=== PATIENT | male | born 1990 | race Caucasian/White ===

== ENCOUNTER 2019-09-12 19:59 | Observation (INO) | payer MEDICAID, OTHER ==
[2019-09-12] MEDS ORDERED: Codeine/guaiFENesin 100mg-10 MG/5 ML Syrup 10 ML Cup PO ONE (20:29)
[2019-09-12] MEDS ORDERED: Albuterol/Ipratropium 3.0-0.5 MG/3 ML Neb Soln NEB ONE (20:30)
[2019-09-12] MEDS ORDERED: Sodium Chloride 0.9% 1,000 ML IV SCH (20:30)
[2019-09-12] MEDS ORDERED: cefTRIAXone 2 GM in Sodium Chloride 0.9% 50 ML IV ONE (20:47)
--- NOTE | 2019-09-12 21:20 | CRLCR ---
INDICATION: Shortness of breath. FINDINGS: PA and lateral chest x-rays show a normal cardiac silhouette. The lungs show a faint left upper lobe airspace opacity. No other focal pulmonary opacities. Sharp pleural margins. No pneumothorax. IMPRESSION: Faint left upper lobe airspace opacity may represent a pneumonia. Dictated by Ja Silver MD @ 09/12/2019 9:18:44 PM Dictated by: Ja Silver MD @ 09/12/2019 21:18:49 (Electronically Signed)
[2019-09-12] MEDS ORDERED: Albuterol 0.083% 2.5 MG/3 ML Neb Soln NEB PRN (21:53)
--- NOTE | 2019-09-12 21:53 | PCM.HP.2 ---
H&P History of Present Illness - General Date of Service: 09/12/19 Admit Problem/Dx: Admission Diagnosis/Problem Admission Diagnosis/Problem Pneumonia Source of Information: Patient History Limitations: Reports: No Limitations - History of Present Illness Initial Comments - Free Text/Narative: Chief Complaint: shortness of breath This is a 28 year old male presents to the ER with concerns of shortness of breath. He reports about 5 days ago he just finished having the flu, then yesterday he just couldn't breath. Today his symptoms are worse. has not eaten any food since yesterday, worsen shortness of breath, left chest with severe pain with any movement. He reports he is generally healthy except for smoking 2 pack of cigarette per day. Has not smoked since yesterday due to shortness of breath. Symptom Onset Date: 09/11/19 Duration of Symptoms: Reports: Getting Worse Location: Reports: Chest (left chest pain with movement or breathing.), Generalized (not feeling well, shortness of breath.) Severity: Severe Improves with: Reports: None Worsens with: Reports: None Associated Symptoms: Reports: Cough, Fever/Chills, Loss of Appetite, Malaise - Related Data Allergies/Adverse Reactions: Allergies Allergy/AdvReac Type Severity Reaction Status Date / Time Penicillins Allergy Hives Verified 09/12/19 20:09 Home Medications: Home Meds NK [No Known Home Meds] 09/12/19 [History] Past Medical History - Past Surgical History HEENT Surgical History: Reports: Myringotomy w Tube(s) Social & Family History - Tobacco Use Smoking Status *Q: Current Every Day Smoker Years of Tobacco use: 13 Packs/Tins Daily: 2 - Living Situation & Occupation Living situation: Reports: Single, with Family (lives with his Mom-Argenis and Dad -Elias.) H&P Review of Systems - Review of Systems: Review Of Systems: See Below General: Reports: Fever, Chills, Malaise, Fatigue, Decreased Appetite HEENT: Reports: No Symptoms Pulmonary: Reports: Shortness of Breath, Wheezing, Pleuritic Chest Pain, Cough Cardiovascular: Reports: No Symptoms Gastrointestinal: Reports: No Symptoms Genitourinary: Reports: No Symptoms Musculoskeletal: Reports: Muscle Pain (left chest) Skin: Reports: No Symptoms Psychiatric: Reports: No Symptoms Neurological: Reports: No Symptoms Hematologic/Lymphatic: Reports: No Symptoms Exam - Exam Exam: See Below - Vital Signs Vital Signs: Last Vital Signs Temp 35.5 C L 09/12/19 20:14 Pulse 113 H 09/12/19 20:14 Resp 16 09/12/19 20:14 BP 126/74 09/12/19 20:14 Pulse Ox 91 L 09/12/19 20:14 Weight: 72.575 kg - Exam General: Alert, Oriented, Moderate Distress (appear pallor and ill. with shallow breathing. ), Other (vital signs TPR 35.5-113-16 B/P 126/74 O2 sat 91% on room air) HEENT: PERRLA, Conjunctiva Clear, EACs Clear, EOMI, Hearing Intact, Mucosa Moist & [place], Nares Patent Neck: Supple, Trachea Midline Lungs: Decreased Breath Sounds (shallow breathing noted.) Cardiovascular: Regular Rate, Regular Rhythm, Tachycardia GI/Abdominal Exam: Normal Bowel Sounds, Soft, Non-Tender (Male) Exam: Deferred Rectal (Males) Exam: Deferred Back Exam: Normal Inspection, Full Range of Motion Extremities: Normal Inspection, Normal Range of Motion, Non-Tender, No Pedal Edema, Normal Capillary Refill Peripheral Pulses: 2+: Radial (L), Radial (R) Skin: Dry, Intact, Cool Neurological: Cranial Nerves Intact, Reflexes Equal Bilateral, Strength Equal Bilateral Neuro Extensive - Mental Status: Alert, Oriented x3, Normal Mood/Affect, Normal Cognition Neuro Extensive - Motor, Sensory, Reflexes: Normal Gait, Normal Reflexes Psychiatric: Alert (pleasant, polite. ), Normal Affect, Normal Mood - Patient Data Lab Results Last 24 hrs: Laboratory Results - last 24 hr 09/12/19 09/12/19 09/12/19 Range/Units 20:41 20:41 20:55 WBC 28.3 H (4.5-11.0) K/uL RBC 5.42 (4.30-5.90) M/uL Hgb 14.9 (12.0-15.0) g/dL Hct 45.7 (40.0-54.0) % MCV 84 (80-98) fL MCH 28 (27-31) pg MCHC 33 (32-36) % Plt Count 374 (150-400) K/uL Add Manual Diff Yes Neutrophils % (Manual) 78 H (36-66) % Band Neutrophils % 3 L (5-11) % Lymphocytes % (Manual) 5 L (24-44) % Monocytes % (Manual) 13 H (2-6) % Eosinophils % (Manual) 1 L (2-4) % Polychromasia Sodium 138 L (140-148) mmol/L Potassium 3.6 (3.6-5.2) mmol/L Chloride 99 L (100-108) mmol/L Carbon Dioxide 25 (21-32) mmol/L Anion Gap 17.6 H (5.0-14.0) mmol/L BUN 8 (7-18) mg/dL Creatinine 1.1 (0.8-1.3) mg/dL Est Cr Clr Drug Dosing 86.19 mL/min Estimated GFR (MDRD) > 60 (>60) Glucose 138 H (74-106) mg/dL Lactic Acid 1.4 (0.4-2.0) mmol/L Calcium 8.9 (8.5-10.1) mg/dL Total Bilirubin 0.6 (0.2-1.0) mg/dL AST 10 L (15-37) U/L ALT 22 (12-78) U/L Alkaline Phosphatase 83 (46-116) U/L Total Protein 8.1 (6.4-8.2) g/dL Albumin 3.0 L (3.4-5.0) g/dL Globulin 5.1 H (2.3-3.5) g/dL Albumin/Globulin Ratio 0.6 L (1.2-2.2) Result Diagrams: 09/12/19 20:41 09/12/19 20:41 Wyatt Results Last 24 hrs: Microbiology 09/12/19 20:31 Influenza Type A Antigen Screen - Final Nasal, Unspecified NEGATIVE INFLUENZA A VIRUS AG REFERENCE RANGE: NEGATIVE Influenza Type B Antigen Screen - Final NEGATIVE INFLUENZA B VIRUS AG REFERENCE RANGE: NEGATIVE Sepsis Event Note - Evaluation Sepsis Screening Result: No Definite Risk Possible Source of Sepsis: Pulmonary - Focused Exam Vital Signs: Vital Signs Temp Pulse Resp BP Pulse Ox 09/12/19 20:14 35.5 C L 113 H 16 126/74 91 L Respiratory Effort Without Exertion: Shallow Date Exam was Performed: 09/12/19 Time Exam was Performed: 22:12 - Problem List (1) Pneumonia SNOMED Code(s): 042063932 ICD Code: J18.9 - PNEUMONIA, UNSPECIFIED ORGANISM Status: Acute Priority : High Current Visit: Yes Qualifiers: Pneumonia type: due to unspecified organism Laterality: left Lung location: upper lobe of lung Qualified Code(s): J18.9 - Pneumonia, unspecified organism (2) Tobacco use disorder, continuous SNOMED Code(s): 105262798 ICD Code: F17.209 - NICOTINE DEPENDENCE, UNSP, W UNSP NICOTINE-INDUCED DISORDERS Status: Acute Priority: High Current Visit: Yes Problem List Initiated/Reviewed/Updated: Yes Orders Last 24hrs: Active Orders 24 hr Category Date Time Status Patient Status Manage Transfer [TRANSFER] Routine ADT 09/12/19 21:33 Active RT Aerosol Therapy [RC] ASDIRECTED Care 09/12/19 20:31 Active CULTURE BLOOD [BC] Urgent Lab 09/12/19 20:50 Received CULTURE BLOOD [BC] Urgent Lab 09/12/19 20:55 Received Sodium Chloride 0.9% [Normal Saline] 1,000 ml Med 09/12/19 20:30 Active IV ASDIRECTED methylPREDNISolone Sod Succ [Solu-MEDROL] Med 09/12/19 21:45 Ordered 40 mg IVPUSH Q6H Blood Culture x2 Reflex Set [OM.PC] Urgent Oth 09/12/19 20:46 Ordered Resuscitation Status Routine Resus Stat 09/12/19 21:35 Ordered Medication Orders Sodium Chloride (Normal Saline) 1,000 mls @ 999 mls/hr IV ASDIRECTED [facility] Last Admin: 09/12/19 21:06 Dose: 999 mls/hr Methylprednisolone Sodium Succinate (Solu-Medrol) 40 mg IVPUSH Q6H COUNTS INCLUDE 234 BEDS AT THE [facility] Assessment/Plan Comment:: Pneumonia - left upper lobe. -Admit observation 2 [place] for further monitoring -IV Fluids for rehydration 1 liter given in ER, then Normal Saline at 125ml/hr -IV Antibiotic; Rocephin 1 gram IV every 24 hours -IV Zithromax 500mg every 24 hours -oxygen to keep sats greater than 95% -IV Solumedrol 40 mg every 6 hours -schedule Duo nebs every 6 hours, Albuterol nebs every 4 hours prn -Advise to notify nurses of any chest pain or other symptoms -blood cultures x2 pending -And a.m. labs: CBC, BMP Tobacco use, report smokes 2 packs per day, unable to smoke today due to shortness of breath and not feeling well. -Nicotine patch 21 mg apply today -encourage to quit smoking Maintenance issues -Orders home meds: no chronic medication -Nutrition: regular diet -Epps catheter -not indicated at this time -DVT: Lovenox 30 mg subcut daily -PPI; PO Protonix 40mg daily CODE STATUS: FULL Admission status: Admit to Observation -I expect this patient to stay less than 24 hours, not to exceed 96 hours for evaluation and management of this problem admission status: Admit to [address] [place] [address] Disposition: home with Family Primary care provider: No primary care provider Hospitalist: Dr. Good - Mortality Measure Prognosis:: Good
[2019-09-12] MEDS ORDERED: Pantoprazole 40 MG Vial IVPUSH SCH (22:00)
[2019-09-12] MEDS ORDERED: oxyCODONE 5 MG Tab PO PRN (22:04)
[2019-09-12] MEDS ORDERED: Morphine 2 MG/ML SYRINGE IVPUSH PRN (22:04)
[2019-09-12] MEDS ORDERED: Docusate Sodium 100 MG Cap PO PRN (22:04)
[2019-09-12] MEDS ORDERED: Melatonin 3 MG Tab PO PRN (22:04)
[2019-09-12] MEDS ORDERED: Ondansetron 4 MG Tab.DIS PO PRN (22:04)
[2019-09-12] MEDS ORDERED: Acetaminophen 325 MG Tab PO PRN (22:04)
[2019-09-12] MEDS ORDERED: LORazepam 2 MG/ML SDV IV PRN (22:04)
--- NOTE | 2019-09-12 22:16 | EDM.PDOC ---
ED HPI GENERAL MEDICAL PROBLEM - General Chief Complaint: Chest Pain Stated Complaint: L SIDE PAIN Time Seen by Provider: 09/12/19 20:00 Source of Information: Reports: Patient History Limitations: Reports: No Limitations - History of Present Illness INITIAL COMMENTS - FREE TEXT/NARRATIVE: Chief Complaint: shortness of breath This is a 28 year old male presents to the ER with concerns of shortness of breath. He reports about 5 days ago he just finished having the flu, then yesterday he just couldn't breath. Today his symptoms are worse. has not eaten any food since yesterday, worsen shortness of breath, left chest with severe pain with any movement. He reports he is generally healthy except for smoking 2 pack of cigarette per day. Has not smoked since yesterday due to shortness of breath. Symptom Onset Date: 09/11/19 Onset Date: 09/11/19 Duration: Getting Worse Location: Reports: Chest (left chest pain with movement or breathing.), Generalized (not feeling well, shortness of breath.) Severity: Severe Improves with: Reports: None Worsens with: Reports: None Associated Symptoms: Reports: Cough, Fever/Chills, Loss of Appetite, Malaise - Related Data Allergies Allergy/AdvReac Type Severity Reaction Status Date / Time Penicillins Allergy Hives Verified 09/12/19 20:09 Home Meds: Home Meds NK [No Known Home Meds] 09/12/19 [History] Past Medical History - Past Surgical History HEENT Surgical History: Reports: Myringotomy w Tube(s) Social & Family History - Tobacco Use Smoking Status *Q: Current Every Day Smoker Years of Tobacco use: 13 Packs/Tins Daily: 2 - Living Situation & Occupation Living situation: Reports: Single, with Family (lives with his Mom-Argenis and Dad -Elias.) ED ROS GENERAL - Review of Systems Review Of Systems: See Below Constitutional: Reports: Fever, Chills, Malaise, Fatigue, Decreased Appetite ( has not eaten for two days.) HEENT: Reports: No Symptoms Respiratory: Reports: Shortness of Breath, Pleuritic Chest Pain, Cough Cardiovascular: Reports: No Symptoms Endocrine: Reports: Fatigue GI/Abdominal: Reports: No Symptoms : Reports: No Symptoms Musculoskeletal: Reports: Back Pain (left chest) Skin: Reports: Pallor Neurological: Reports: No Symptoms Psychiatric: Reports: No Symptoms Hematologic/Lymphatic: Reports: No Symptoms Immunologic: Reports: No Symptoms ED EXAM, GENERAL - Physical Exam Exam: See Below Exam Limited By: No Limitations General Appearance: Alert, WD/WN, Moderate Distress, Other (pallor noted. with shallow breathing, appears ill.) Eye Exam: Bilateral Eye: EOMI, Normal Inspection Ears: Normal External Exam, Normal Canal, Hearing Grossly Normal, Normal TMs Ear Exam: Bilateral Ear: Auricle Normal, Canal Normal, TM normal Nose: Normal Inspection, Normal Mucosa, No Blood Throat/Mouth: Normal Inspection, Normal Lips, Normal Teeth, Normal Gums, Normal Oropharynx, Normal Voice, No Airway Compromise Head: Atraumatic, Normocephalic Neck: Normal Inspection, Supple, Non-Tender, Full Range of Motion Respiratory/Chest: Decreased Breath Sounds, Other (shallow breathing.) Cardiovascular: Regular Rate, Rhythm, Tachycardia (rate 120's) Peripheral Pulses: 2+: Radial (L), Radial (R) GI/Abdominal: Normal Bowel Sounds, Soft, Non-Tender (Male) Exam: Deferred Rectal (Males) Exam: Deferred Back Exam: Normal Inspection, Full Range of Motion Extremities: Normal Inspection, Normal Range of Motion, Non-Tender, No Pedal Edema, Normal Capillary Refill Neurological: No Motor/Sensory Deficits Psychiatric: Normal Affect, Normal Mood Skin Exam: Cool, Pallor Lymphatic: No Adenopathy Course - Vital Signs Last Recorded V/S: Last Vital Signs Temp 38.4 C H 09/12/19 22:11 Pulse 110 H 09/12/19 22:11 Resp 20 09/12/19 22:11 BP 142/84 H 09/12/19 22:11 Pulse Ox 93 L 09/12/19 22:14 - Orders/Labs/Meds Orders: Active Orders 24 hr Category Date Time Status RT Aerosol Therapy [RC] ASDIRECTED Care 09/12/19 20:31 Active CULTURE BLOOD [BC] Urgent Lab 09/12/19 20:50 Received CULTURE BLOOD [BC] Urgent Lab 09/12/19 20:55 Received Sodium Chloride 0.9% [Normal Saline] 1,000 ml Med 09/12/19 20:30 Active IV ASDIRECTED Blood Culture x2 Reflex Set [OM.PC] Urgent Oth 09/12/19 20:46 Ordered Medication Orders Acetaminophen (Tylenol) 650 mg PO Q4H PRN PRN Reason: Pain (Mild 1-3)/fever Albuterol (Proventil Neb Soln) 2.5 mg NEB Q2H PRN PRN Reason: Shortness of Breath Albuterol/Ipratropium (Duoneb 3.0-0.5 Mg/3 Ml) 3 ml NEB QID [facility] Docusate Sodium (Colace) 100 mg PO BID PRN PRN Reason: Constipation Enoxaparin Sodium (Lovenox) 30 mg SUBCUT DAILY [facility] Guaifenesin/Codeine Phosphate (Robitussin Ac) 10 ml PO Q4H PRN PRN Reason: Cough Sodium Chloride (Normal Saline) 1,000 mls @ 999 mls/hr IV ASDIRECTED [facility] Last Admin: 09/12/19 21:06 Dose: 999 mls/hr Azithromycin 500 mg/ Sodium (Chloride) 250 mls @ 250 mls/hr IV Q24H [facility] Ceftriaxone Sodium 1 gm/ (Sodium Chloride) 50 mls @ 100 mls/hr IV Q24H [facility] Sodium Chloride (Normal Saline) 1,000 mls @ 125 mls/hr IV ASDIRECTED [facility] Lorazepam (Ativan) 1 mg IV Q6H PRN PRN Reason: Nausea/Vomiting Melatonin (Melatonin) 6 mg PO BEDTIME PRN PRN Reason: Insomnia Methylprednisolone Sodium Succinate (Solu-Medrol) 40 mg IVPUSH Q6H [facility] Morphine Sulfate (Morphine) 2 mg IVPUSH Q2H PRN PRN Reason: Pain (severe 7-10) Nicotine (Habitrol) 21 mg TRDERM DAILY [facility] Ondansetron HCl (Zofran Odt) 4 mg PO Q6H PRN PRN Reason: Nausea able to take PO Oxycodone HCl (Oxycodone) 5 mg PO Q4H PRN PRN Reason: Pain (moderate 4-6) Pantoprazole Sodium (Protonix Iv) 40 mg IVPUSH DAILY [facility] Labs: Laboratory Tests 09/12/19 09/12/19 09/12/19 Range/Units 20:41 20:41 20:55 WBC 28.3 H (4.5-11.0) K/uL RBC 5.42 (4.30-5.90) M/uL Hgb 14.9 (12.0-15.0) g/dL Hct 45.7 (40.0-54.0) % MCV 84 (80-98) fL MCH 28 (27-31) pg MCHC 33 (32-36) % Plt Count 374 (150-400) K/uL Add Manual Diff Yes Neutrophils % (Manual) 78 H (36-66) % Band Neutrophils % 3 L (5-11) % Lymphocytes % (Manual) 5 L (24-44) % Monocytes % (Manual) 13 H (2-6) % Eosinophils % (Manual) 1 L (2-4) % Polychromasia Sodium 138 L (140-148) mmol/L Potassium 3.6 (3.6-5.2) mmol/L Chloride 99 L (100-108) mmol/L Carbon Dioxide 25 (21-32) mmol/L Anion Gap 17.6 H (5.0-14.0) mmol/L BUN 8 (7-18) mg/dL Creatinine 1.1 (0.8-1.3) mg/dL Est Cr Clr Drug Dosing 86.19 mL/min Estimated GFR (MDRD) > 60 (>60) Glucose 138 H (74-106) mg/dL Lactic Acid 1.4 (0.4-2.0) mmol/L Calcium 8.9 (8.5-10.1) mg/dL Total Bilirubin 0.6 (0.2-1.0) mg/dL AST 10 L (15-37) U/L ALT 22 (12-78) U/L Alkaline Phosphatase 83 (46-116) U/L Total Protein 8.1 (6.4-8.2) g/dL Albumin 3.0 L (3.4-5.0) g/dL Globulin 5.1 H (2.3-3.5) g/dL Albumin/Globulin Ratio 0.6 L (1.2-2.2) Meds: Medications Generic Name Dose Route Start Last Admin Trade Name Freq PRN Reason Stop Dose Admin Acetaminophen 650 mg 09/12/19 22:04 Tylenol PO Q4H PRN Pain (Mild 1-3)/fever Albuterol 2.5 mg 09/12/19 21:53 Proventil Neb Soln NEB Q2H PRN Shortness of Breath Albuterol/Ipratropium 3 ml 09/12/19 22:04 Duoneb 3.0-0.5 Mg/3 Ml NEB QID [facility] Docusate Sodium 100 mg 09/12/19 22:04 Colace PO BID PRN Constipation Enoxaparin Sodium 30 mg 09/12/19 22:04 Lovenox SUBCUT DAILY [facility] Guaifenesin/Codeine Phosphate 10 ml 09/12/19 22:04 Robitussin Ac PO Q4H PRN Cough Sodium Chloride 1,000 mls @ 999 mls/hr 09/12/19 20:30 09/12/19 21:06 Normal Saline IV 999 mls/hr ASDIRECTED [facility]NY Administration Azithromycin 500 mg/ Sodium 250 mls @ 250 mls/hr 09/12/19 22:04 Chloride IV Q24H [facility] Ceftriaxone Sodium 1 gm/ 50 mls @ 100 mls/hr 09/13/19 09:10 Sodium Chloride IV Q24H [facility] Sodium Chloride 1,000 mls @ 125 mls/hr 09/12/19 22:04 Normal Saline IV ASDIRECTED [facility] Lorazepam 1 mg 09/12/19 22:04 Ativan IV Q6H PRN Nausea/Vomiting Melatonin 6 mg 09/12/19 22:04 Melatonin PO BEDTIME PRN Insomnia Methylprednisolone Sodium Succinate 40 mg 09/12/19 21:45 Solu-Medrol IVPUSH Q6H [facility] Morphine Sulfate 2 mg 09/12/19 22:04 Morphine IVPUSH Q2H PRN Pain (severe 7-10) Nicotine 21 mg 09/12/19 22:04 Habitrol TRDERM DAILY [facility] Ondansetron HCl 4 mg 09/12/19 22:04 Zofran Odt PO Q6H PRN Nausea able to take PO Oxycodone HCl 5 mg 09/12/19 22:04 Oxycodone PO Q4H PRN Pain (moderate 4-6) Pantoprazole Sodium 40 mg 09/12/19 22:00 Protonix Iv IVPUSH DAILY [facility] Discontinued Medications Generic Name Dose Route Start Last Admin Trade Name Freq PRN Reason Stop Dose Admin Albuterol/Ipratropium 3 ml 09/12/19 20:30 09/12/19 20:55 Duoneb 3.0-0.5 Mg/3 Ml NEB 09/12/19 20:31 3 ml ONETIME ONE Administration Guaifenesin/Codeine Phosphate 10 ml 09/12/19 20:29 09/12/19 20:57 Robitussin Ac PO 09/12/19 20:30 10 ml ONETIME ONE Administration Ceftriaxone Sodium 2 gm/ 50 mls @ 100 mls/hr 09/12/19 20:47 09/12/19 21:15 Sodium Chloride IV 09/12/19 21:16 100 mls/hr ONETIME ONE Administration - Re-Assessments/Exams Free Text/Narrative Re-Assessment/Exam: 09/12/19 -labs WBC 28.3, Seg 78, Bands 3, Na 138., K+3.6 , anion gap 17.6, creat 1.1, glucose 138, LFT mild elevations, Lactic acid 1.4, Influenza A&B neg. Blood cultures x 2 pending Chest xray shows a left upper lobe pneumonia In ER IV fluids started, Normal Saline 999ml/hr then second liter at 125 ml/hr IV Rocephin 2 gram now Duo neb once Robitussin AC 10 ml po now discussed with Mr. Ludwig, will admit to hospital for further care and treatment agree with plan of care. Departure - Departure Time of Disposition: 21:11 Disposition: Admitted As Inpatient 65 Condition: Fair Clinical Impression: Pneumonia, Tobacco use disorder, continuous - Discharge Information *PRESCRIPTION DRUG MONITORING PROGRAM REVIEWED*: Not Applicable *COPY OF PRESCRIPTION DRUG MONITORING REPORT IN PATIENT MARCO: Not Applicable Sepsis Event Note - Evaluation Sepsis Screening Result: No Definite Risk - Focused Exam Vital Signs: Vital Signs Temp Pulse Resp BP Pulse Ox 09/12/19 20:14 35.5 C L 113 H 16 126/74 91 L Date Exam was Performed: 09/12/19 Time Exam was Performed: 22:16 - Problem List & Annotations (1) Pneumonia SNOMED Code(s): 972395394 Code(s): J18.9 - PNEUMONIA, UNSPECIFIED ORGANISM Status: Acute Priority: High Current Visit: Yes Qualifiers: Pneumonia type: due to unspecified organism Laterality: left Lung location: upper lobe of lung Qualified Code(s): J18.9 - Pneumonia, unspecified organism (2) Tobacco use disorder, continuous SNOMED Code(s): 769526386 Code(s): F17.209 - NICOTINE DEPENDENCE, UNSP, W UNSP NICOTINE-INDUCED DISORDERS Status: Acute Priority: High Current Visit: Yes - My Orders Last 24 Hours: My Active Orders 09/12/19 20:30 Sodium Chloride 0.9% [Normal Saline] 1,000 ml IV ASDIRECTED 09/12/19 20:31 RT Aerosol Therapy [RC] ASDIRECTED 09/12/19 20:46 Blood Culture x2 Reflex Set [OM.PC] Urgent 09/12/19 20:50 CULTURE BLOOD [BC] Urgent 09/12/19 20:55 CULTURE BLOOD [BC] Urgent - Assessment/Plan Last 24 Hours: My Active Orders 09/12/19 20:30 Sodium Chloride 0.9% [Normal Saline] 1,000 ml IV ASDIRECTED 09/12/19 20:31 RT Aerosol Therapy [RC] ASDIRECTED 09/12/19 20:46 Blood Culture x2 Reflex Set [OM.PC] Urgent 09/12/19 20:50 CULTURE BLOOD [BC] Urgent 09/12/19 20:55 CULTURE BLOOD [BC] Urgent
[2019-09-12] MEDS: methylPREDNISolone Sodium Succinate 40 MG/1 ML SDV IVPUSH SCH (22:47)
[2019-09-12] MEDS: Sodium Chloride 0.9% 1,000 ML IV SCH (22:55)
[2019-09-12] MEDS ORDERED: Azithromycin 500 MG in Sodium Chloride 0.9% 250 ML IV SCH (23:00)
[2019-09-12] MEDS: Albuterol/Ipratropium 3.0-0.5 MG/3 ML Neb Soln NEB SCH (23:23)
[2019-09-12] MEDS: Nicotine 21 MG/24 Hr Patch TRDERM SCH (23:25)
[2019-09-12] MEDS: Enoxaparin 40 MG/0.4 ML Syringe SUBCUT SCH (23:33)
[2019-09-13] MEDS ORDERED: Codeine/guaiFENesin 100mg-10 MG/5 ML Syrup 10 ML Cup PO PRN (01:00)
[2019-09-13] MEDS: methylPREDNISolone Sodium Succinate 40 MG/1 ML SDV IVPUSH SCH (03:21)
[2019-09-13] MEDS: Albuterol/Ipratropium 3.0-0.5 MG/3 ML Neb Soln NEB SCH ×4 (07:22→20:58)
[2019-09-13] MEDS: Sodium Chloride 0.9% 1,000 ML IV SCH (07:56)
[2019-09-13] MEDS: Nicotine 21 MG/24 Hr Patch TRDERM SCH (09:40)
[2019-09-13] MEDS ORDERED: methylPREDNISolone Sodium Succinate 40 MG/1 ML SDV IVPUSH SCH (10:00)
--- NOTE | 2019-09-13 10:57 | PCM.PN ---
- General Info Date of Service: 09/13/19 Subjective Update: No acute events overnight. Patient is feeling better today. Left-sided chest pain has improved but not resolved. Shortness of breath is better but not back to normal. He is tachycardic with activity but stable at rest. He has not required supplemental oxygen. Appetite good. Functional Status: Reports: Pain Controlled, Tolerating Diet - Review of Systems Pulmonary: Reports: Shortness of Breath, Pleuritic Chest Pain - Patient Data Vitals - Most Recent: Last Vital Signs Temp 35.4 C L 09/13/19 07:46 Pulse 109 H 09/13/19 10:51 Resp 16 09/13/19 07:46 BP 121/54 L 09/13/19 07:46 Pulse Ox 91 L 09/13/19 07:46 Weight - Most Recent: 72.575 kg I&O - Last 24 Hours: Intake & Output 09/12/19 09/13/19 09/13/19 22:59 06:59 14:59 Intake Total 570 Output Total 400 300 Balance 170 -300 Lab Results Last 24 Hours: Laboratory Results - last 24 hr 09/12/19 09/12/19 09/12/19 Range/Units 20:41 20:41 20:55 WBC 28.3 H (4.5-11.0) K/uL RBC 5.42 (4.30-5.90) M/uL Hgb 14.9 (12.0-15.0) g/dL Hct 45.7 (40.0-54.0) % MCV 84 (80-98) fL MCH 28 (27-31) pg MCHC 33 (32-36) % Plt Count 374 (150-400) K/uL Add Manual Diff Yes Neutrophils % (Manual) 78 H (36-66) % Band Neutrophils % 3 L (5-11) % Lymphocytes % (Manual) 5 L (24-44) % Monocytes % (Manual) 13 H (2-6) % Eosinophils % (Manual) 1 L (2-4) % Polychromasia Sodium 138 L (140-148) mmol/L Potassium 3.6 (3.6-5.2) mmol/L Chloride 99 L (100-108) mmol/L Carbon Dioxide 25 (21-32) mmol/L Anion Gap 17.6 H (5.0-14.0) mmol/L BUN 8 (7-18) mg/dL Creatinine 1.1 (0.8-1.3) mg/dL Est Cr Clr Drug Dosing 86.19 mL/min Estimated GFR (MDRD) > 60 (>60) Glucose 138 H (74-106) mg/dL Lactic Acid 1.4 (0.4-2.0) mmol/L Calcium 8.9 (8.5-10.1) mg/dL Total Bilirubin 0.6 (0.2-1.0) mg/dL AST 10 L (15-37) U/L ALT 22 (12-78) U/L Alkaline Phosphatase 83 (46-116) U/L Total Protein 8.1 (6.4-8.2) g/dL Albumin 3.0 L (3.4-5.0) g/dL Globulin 5.1 H (2.3-3.5) g/dL Albumin/Globulin Ratio 0.6 L (1.2-2.2) 09/13/19 09/13/19 Range/Units 06:08 06:08 WBC 35.3 H* (4.5-11.0) K/uL RBC 4.87 (4.30-5.90) M/uL Hgb 13.6 (12.0-15.0) g/dL Hct 41.5 (40.0-54.0) % MCV 85 (80-98) fL MCH 28 (27-31) pg MCHC 33 (32-36) % Plt Count 327 (150-400) K/uL Add Manual Diff Yes Neutrophils % (Manual) 92 H (36-66) % Band Neutrophils % (5-11) % Lymphocytes % (Manual) 4 L (24-44) % Monocytes % (Manual) 4 (2-6) % Eosinophils % (Manual) (2-4) % Polychromasia Sodium 140 (140-148) mmol/L Potassium 4.5 (3.6-5.2) mmol/L Chloride 104 (100-108) mmol/L Carbon Dioxide 26 (21-32) mmol/L Anion Gap 10.5 (5.0-14.0) mmol/L BUN 6 L (7-18) mg/dL Creatinine 0.9 (0.8-1.3) mg/dL Est Cr Clr Drug Dosing 105.35 mL/min Estimated GFR (MDRD) > 60 (>60) Glucose 175 H (74-106) mg/dL Lactic Acid (0.4-2.0) mmol/L Calcium 8.3 L (8.5-10.1) mg/dL Total Bilirubin (0.2-1.0) mg/dL AST (15-37) U/L ALT (12-78) U/L Alkaline Phosphatase (46-116) U/L Total Protein (6.4-8.2) g/dL Albumin (3.4-5.0) g/dL Globulin (2.3-3.5) g/dL Albumin/Globulin Ratio (1.2-2.2) [facility] Results Last 24 Hours: Microbiology 09/12/19 20:31 Influenza Type A Antigen Screen - Final Nasal, Unspecified NEGATIVE INFLUENZA A VIRUS AG REFERENCE RANGE: NEGATIVE Influenza Type B Antigen Screen - Final NEGATIVE INFLUENZA B VIRUS AG REFERENCE RANGE: NEGATIVE Med Orders - Current: Current Medications Acetaminophen (Tylenol) 650 mg PO Q4H PRN PRN Reason: Pain (Mild 1-3)/fever Last Admin: 09/12/19 22:46 Dose: 650 mg Albuterol (Proventil Neb Soln) 2.5 mg NEB Q2H PRN PRN Reason: Shortness of Breath Albuterol/Ipratropium (Duoneb 3.0-0.5 Mg/3 Ml) 3 ml NEB QIDRT [facility] Last Admin: 09/13/19 10:51 Dose: 3 ml Docusate Sodium (Colace) 100 mg PO BID PRN PRN Reason: Constipation Enoxaparin Sodium (Lovenox) 40 mg SUBCUT Q24H [facility] Last Admin: 09/12/19 23:33 Dose: 40 mg Guaifenesin/Codeine Phosphate (Robitussin Ac) 10 ml PO Q4H PRN PRN Reason: Cough Ceftriaxone Sodium 1 gm/ (Sodium Chloride) 50 mls @ 100 mls/hr IV BEDTIME [facility] Lorazepam (Ativan) 1 mg IV Q6H PRN PRN Reason: Nausea/Vomiting Melatonin (Melatonin) 6 mg PO BEDTIME PRN PRN Reason: Insomnia Morphine Sulfate (Morphine) 2 mg IVPUSH Q2H PRN PRN Reason: Pain (severe 7-10) Nicotine (Habitrol) 21 mg TRDERM DAILY [facility] Last Admin: 09/13/19 09:40 Dose: Not Given Ondansetron HCl (Zofran Odt) 4 mg PO Q6H PRN PRN Reason: Nausea able to take PO Oxycodone HCl (Oxycodone) 5 mg PO Q4H PRN PRN Reason: Pain (moderate 4-6) Last Admin: 09/12/19 22:46 Dose: 5 mg Discontinued Medications Albuterol/Ipratropium (Duoneb 3.0-0.5 Mg/3 Ml) 3 ml NEB ONETIME ONE Stop: 09/12/19 20:31 Last Admin: 09/12/19 20:55 Dose: 3 ml Guaifenesin/Codeine Phosphate (Robitussin Ac) 10 ml PO ONETIME ONE Stop: 09/12/19 20:30 Last Admin: 09/12/19 20:57 Dose: 10 ml Sodium Chloride (Normal Saline) 1,000 mls @ 999 mls/hr IV ASDIRECTED [facility] Last Admin: 09/12/19 21:06 Dose: 999 mls/hr Ceftriaxone Sodium 2 gm/ (Sodium Chloride) 50 mls @ 100 mls/hr IV ONETIME ONE Stop: 09/12/19 21:16 Last Admin: 09/12/19 21:15 Dose: 100 mls/hr Azithromycin 500 mg/ Sodium (Chloride) 250 mls @ 250 mls/hr IV Q24H [facility] Last Admin: 09/12/19 23:24 Dose: 250 mls/hr Sodium Chloride (Normal Saline) 1,000 mls @ 125 mls/hr IV ASDIRECTED [facility] Last Admin: 09/13/19 07:56 Dose: 125 mls/hr Methylprednisolone Sodium Succinate (Solu-Medrol) 40 mg IVPUSH Q6H [facility] Last Admin: 09/13/19 03:21 Dose: 40 mg Methylprednisolone Sodium Succinate (Solu-Medrol) 40 mg IVPUSH Q6H [facility] Last Admin: 09/13/19 09:42 Dose: 40 mg Pantoprazole Sodium (Protonix Iv) 40 mg IVPUSH DAILY [facility] Last Admin: 09/12/19 22:53 Dose: 40 mg Pantoprazole Sodium (Protonix Iv) 40 mg IVPUSH BEDTIME [facility] - Exam Quality Assessment: No: Supplemental Oxygen General: Alert, Oriented, Cooperative, No Acute Distress Lungs: Normal Respiratory Effort, Crackles (rare left upper chest ) Cardiovascular: Regular Rhythm, Tachycardia GI/Abdominal Exam: Soft, No Distention Extremities: No Pedal Edema Psy/Mental Status: Alert, Normal Affect Sepsis Event Note - Evaluation Sepsis Screening Result: No Definite Risk - Focused Exam Vital Signs: Vital Signs Temp Pulse Resp BP Pulse Ox 09/13/19 10:51 109 H 09/13/19 07:46 35.4 C L 110 H 16 121/54 L 91 L 09/13/19 07:09 93 L 09/13/19 03:18 36.3 C 104 H 16 116/73 95 09/13/19 01:00 93 L 09/12/19 23:38 37.3 C 117 H 18 111/50 L 93 L Date Exam was Performed: 09/13/19 Time Exam was Performed: 12:55 - Problem List Review Problem List Initiated/Reviewed/Updated: Yes - My Orders Last 24 Hours: My Active Orders 09/13/19 10:55 Convert IV to Saline Lock [OM.PC] Routine 09/13/19 16:00 predniSONE 20 mg PO ONETIME ONE 09/13/19 21:00 Azithromycin [Zithromax] 500 mg PO BEDTIME 09/14/19 05:00 CBC W/O DIFF,HEMOGRAM [HEME] Timed (1) 09/14/19 08:00 predniSONE 40 mg PO WITHBREAKFAST - Plan Plan:: ASSESSMENT AND PLAN - Pneumonia - left upper lobe infection following influenza-like illness. Not hypoxic but has significant leukocytosis and pain associated with it. White blood cell count slightly higher today but this could be related to steroids because clinically he looks better. -Saline lock IV -Antibiotic coverage with ceftriaxone and a azithromycin -oxygen to keep sats greater than 95% -Transition steroids to prednisone -schedule Duo nebs every 6 hours, Albuterol nebs every 4 hours prn -Repeat CBC in the morning Tobacco dependence-reports he smokes 2 packs per day. -Nicotine patch 21 mg apply today -encourage to quit smoking Maintenance issues -Nutrition: regular diet -Epps catheter -not indicated at this time -DVT: Lovenox 30 mg subcut daily -GI; PO Protonix 40mg daily Admission status: Admit to Observation -I expect this patient to stay less than 24 hours, not to exceed 96 hours for evaluation and management of this problem admission status: Admit to [address] [place] [address] Disposition: home with Family Rosales Good MD
[2019-09-13] MEDS ORDERED: predniSONE 20 MG Tab PO ONE (16:00)
[2019-09-13] MEDS ORDERED: Azithromycin 250 MG Tab PO SCH (21:00)
[2019-09-13] MEDS ORDERED: cefTRIAXone 1 GM in Sodium Chloride 0.9% 50 ML IV SCH (21:00)
[2019-09-13] MEDS ORDERED: Pantoprazole 40 MG Vial IVPUSH SCH (21:00)
[2019-09-13] MEDS: Enoxaparin 40 MG/0.4 ML Syringe SUBCUT SCH (22:10)
[2019-09-14] MEDS: Albuterol/Ipratropium 3.0-0.5 MG/3 ML Neb Soln NEB SCH (07:47)
[2019-09-14] MEDS ORDERED: predniSONE 20 MG Tab PO SCH (08:00)
[2019-09-14] MEDS: Nicotine 21 MG/24 Hr Patch TRDERM SCH (08:28)
--- NOTE | 2019-09-14 10:39 | PCM.DCSUM1 ---
Discharge Summary - Hospital Course Brief History: 28-year-old male with tobacco dependence who presented with fever , cough, pleuritic left chest pain and shortness of breath. He was admitted for management of a left upper lobe pneumonia. Diagnosis: Stroke: No - Discharge Data Discharge Date: 09/14/19 Discharge Disposition: Home, Self-Care 01 Condition: Good - Referral to Home Health Primary Care Physician: PCP None - Patient Summary/Data Hospital Course: Sly presented to the emergency room with fever, cough, pleuritic chest pain and shortness of breath. Work-up in the emergency room was suggestive of a left upper lobe pneumonia as well as significant leukocytosis with a white blood cell count of 28,000. Given the high white blood cell count and fever he was admitted to the hospital for further management. He was started on ceftriaxone and azithromycin. He was started on steroids to help with the pleuritic chest pain. Overnight following admission there were no acute issues. His pain improved. Shortness of breath was better but his white blood cell count was up to 35,000. Symptomatically he was doing well and objectively all of his numbers were looking better. He did have some intermittent tachycardia but this was at the time of nebulizer treatments. With the rising white count we did elect to keep him 1 more day. Overnight there were no acute issues. He has not had any fevers. He has not had any hypoxia. Chest pain is down to a minimal level. He has been up and walking around without any significant shortness of breath. His white blood cell count is even a little higher today at 39,000. I suspect this is related to his high-dose steroids that he received in the emergency room. Clinically he looks well and his lung exam is normal. He has not had any fevers. I believe he is safe for discharge home at this time. He will be on levofloxacin for 5 more days to treat the pneumonia. He will also have 3 more days of steroids to help with the pleuritic pain and inflammation. He will follow-up if symptoms do not continue to get better. - Patient Instructions Diet: Regular Diet as Tolerated Activity: As Tolerated Showering/Bathing: May Shower Notify Provider of: Fever, Increased Pain Other/Special Instructions: 1. You were in the hospital for management of left upper lobe pneumonia with pleuritic chest pain. Your condition has been improving with antibiotic therapy and steroids. I do recommend ongoing treatment with both of these medications. Please take levofloxacin 750 mg once daily at bedtime for 5 doses. Your first dose outside of the hospital will be due tonight. Also, take prednisone 40 mg once daily in the morning with breakfast for 3 doses. Your first dose outside of the hospital will be due tomorrow morning. 2. Follow up if your symptoms do not continue to get better or if they get worse (increased chest pain, increased shortness of breath or high fever) - Discharge Plan *PRESCRIPTION DRUG MONITORING PROGRAM REVIEWED*: Not Applicable *COPY OF PRESCRIPTION DRUG MONITORING REPORT IN PATIENT MARCO: Not Applicable Prescriptions/Med Rec: Levofloxacin 750 mg PO BEDTIME #5 tablet predniSONE 40 mg PO WITHBREAKFAST #6 tablet Home Medications: Home Meds Levofloxacin 750 mg PO BEDTIME #5 tablet 09/14/19 [Rx] predniSONE 40 mg PO WITHBREAKFAST #6 tablet 09/14/19 [Rx] Oxygen Therapy Mode: Room Air Patient Handouts: Community-Acquired Pneumonia, Adult, [id number]-[id number], Prednisone tablets Referrals: PCP,None [Primary Care Provider] - (f/u as needed if symptoms do not continue to get better ) - Discharge Summary/Plan Comment DC Time >30 min.: No - Patient Data Vitals - Most Recent: Last Vital Signs Temp 35.6 C L 09/14/19 08:29 Pulse 113 H 09/14/19 08:29 Resp 18 09/14/19 08:29 BP 127/55 L 09/14/19 08:29 Pulse Ox 91 L 09/14/19 08:29 Weight - Most Recent: 72.575 kg I&O - Last 24 hours: Intake & Output 09/13/19 09/14/19 09/14/19 22:59 06:59 14:59 Intake Total 1300 1520 Balance 1300 1520 Lab Results - Last 24 hrs: Laboratory Results - last 24 hr 09/14/19 Range/Units 04:10 WBC 39.4 H* (4.5-11.0) K/uL RBC 4.60 (4.30-5.90) M/uL Hgb 12.9 (12.0-15.0) g/dL Hct 39.2 L (40.0-54.0) % MCV 85 (80-98) fL MCH 28 (27-31) pg MCHC 33 (32-36) % Plt Count 326 (150-400) K/uL LYSSA Results - Last 24 hrs: Microbiology 09/12/19 20:50 Aerobic Blood Culture - Preliminary Blood - Venous - Iv Start NO GROWTH AFTER 1 DAY Anaerobic Blood Culture - Preliminary NO GROWTH AFTER 1 DAY 09/12/19 20:55 Aerobic Blood Culture - Preliminary Blood - Venous - Iv Start NO GROWTH AFTER 1 DAY Anaerobic Blood Culture - Preliminary NO GROWTH AFTER 1 DAY Med Orders - Current: Current Medications Acetaminophen (Tylenol) 650 mg PO Q4H PRN PRN Reason: Pain (Mild 1-3)/fever Last Admin: 09/12/19 22:46 Dose: 650 mg Albuterol (Proventil Neb Soln) 2.5 mg NEB Q2H PRN PRN Reason: Shortness of Breath Albuterol/Ipratropium (Duoneb 3.0-0.5 Mg/3 Ml) 3 ml NEB QIDRT [facility] Last Admin: 09/14/19 07:47 Dose: 3 ml Azithromycin (Zithromax) 500 mg PO BEDTIME [facility] Last Admin: 09/13/19 21:03 Dose: 500 mg Docusate Sodium (Colace) 100 mg PO BID PRN PRN Reason: Constipation Enoxaparin Sodium (Lovenox) 40 mg SUBCUT Q24H [facility] Last Admin: 09/13/19 22:10 Dose: 40 mg Guaifenesin/Codeine Phosphate (Robitussin Ac) 10 ml PO Q4H PRN PRN Reason: Cough Ceftriaxone Sodium 1 gm/ (Sodium Chloride) 50 mls @ 100 mls/hr IV BEDTIME [facility] Last Admin: 09/13/19 20:55 Dose: 100 mls/hr Lorazepam (Ativan) 1 mg IV Q6H PRN PRN Reason: Nausea/Vomiting Melatonin (Melatonin) 6 mg PO BEDTIME PRN PRN Reason: Insomnia Morphine Sulfate (Morphine) 2 mg IVPUSH Q2H PRN PRN Reason: Pain (severe 7-10) Nicotine (Habitrol) 21 mg TRDERM DAILY [facility] Last Admin: 09/14/19 08:28 Dose: Not Given Ondansetron HCl (Zofran Odt) 4 mg PO Q6H PRN PRN Reason: Nausea able to take PO Oxycodone HCl (Oxycodone) 5 mg PO Q4H PRN PRN Reason: Pain (moderate 4-6) Last Admin: 09/12/19 22:46 Dose: 5 mg Prednisone (Prednisone) 40 mg PO WITHBREAKFAST [facility] Last Admin: 09/14/19 08:28 Dose: 40 mg Discontinued Medications Albuterol/Ipratropium (Duoneb 3.0-0.5 Mg/3 Ml) 3 ml NEB ONETIME ONE Stop: 09/12/19 20:31 Last Admin: 09/12/19 20:55 Dose: 3 ml Guaifenesin/Codeine Phosphate (Robitussin Ac) 10 ml PO ONETIME ONE Stop: 09/12/19 20:30 Last Admin: 09/12/19 20:57 Dose: 10 ml Sodium Chloride (Normal Saline) 1,000 mls @ 999 mls/hr IV ASDIRECTED [facility] Last Admin: 09/12/19 21:06 Dose: 999 mls/hr Ceftriaxone Sodium 2 gm/ (Sodium Chloride) 50 mls @ 100 mls/hr IV ONETIME ONE Stop: 09/12/19 21:16 Last Admin: 09/12/19 21:15 Dose: 100 mls/hr Azithromycin 500 mg/ Sodium (Chloride) 250 mls @ 250 mls/hr IV Q24H [facility] Last Admin: 09/12/19 23:24 Dose: 250 mls/hr Sodium Chloride (Normal Saline) 1,000 mls @ 125 mls/hr IV ASDIRECTED [facility] Last Admin: 09/13/19 07:56 Dose: 125 mls/hr Methylprednisolone Sodium Succinate (Solu-Medrol) 40 mg IVPUSH Q6H [facility] Last Admin: 09/13/19 03:21 Dose: 40 mg Methylprednisolone Sodium Succinate (Solu-Medrol) 40 mg IVPUSH Q6H [facility] Last Admin: 09/13/19 09:42 Dose: 40 mg Pantoprazole Sodium (Protonix Iv) 40 mg IVPUSH DAILY [facility] Last Admin: 09/12/19 22:53 Dose: 40 mg Pantoprazole Sodium (Protonix Iv) 40 mg IVPUSH BEDTIME [facility] Prednisone (Prednisone) 20 mg PO ONETIME ONE Stop: 09/13/19 16:01 Last Admin: 09/13/19 16:35 Dose: 20 mg - Exam Quality Assessment: Denies: Supplemental Oxygen General: Reports: Alert, Oriented, Cooperative, No Acute Distress Lungs: Reports: Clear to Auscultation, Normal Respiratory Effort Cardiovascular: Reports: Regular Rate, Regular Rhythm
== END 2019-09-14 11:36 | disposition home or self-care (01) ==
LOC: JP.ED 19:59 → JP.MS 21:33
PROVIDERS: ADMIT Internal Medicine; ATTEND Internal Medicine
DX: J18.9 Pneumonia, unspecified organism (principal); F17.210 Nicotine dependence, cigarettes, uncomplicated; Z88.0 Allergy status to penicillin
CPT/HCPCS: 36415; 71046; 80048; 80053; 83605; 85025; 85027; 87040; 87804; 94640; 94762; 96365; 99284; 99285; A9270; C9113; J0456; J0696; J1650; J2920; J7030; J7050; 96361; 96367; 96372; 96375; 96376; G0378; J7620-GY